=== PATIENT | female | born 1960 | race African-American/Black ===

== ENCOUNTER → 2017-02-04 | Outpatient (CLI) | payer OTHER ==
--- NOTE | 2017-02-04 16:29 | CT ---
EXAMINATION TYPE: CT brain wo con DATE OF EXAM: 02/04/2017 COMPARISON: NONE HISTORY: Patient complains of migraine headaches and eye pressure x4 years. CT DLP: [address] of the head is obtained. The ventricles, basal cisterns and sulci overlying the conve xities are consistent with the patient's age. The calvarium is intact. No midline shift. IMPRESSION: 1. No evidence of acute hemorrhage or mass effect. If symptoms persist or there is continued clinica l concern for acute ischemia correlate with MRI.
== END | disposition home or self-care (01) ==
LOC: RADCTMAIN 15:33
PROVIDERS: ATTEND Psychiatry & Neurology Neurology
DX: R51 Headache (principal)
CPT/HCPCS: 70450

== ENCOUNTER 2017-09-02 11:12 | Day surgery (SDC) | payer OTHER ==
[2017-09-01 13:33] VITALS: BMI 33.2
[~2017-09-02 11:12] MED LIST: LACTATED RINGERS 1,000 ML IV SCH
[2017-09-02 12:06] VITALS: TEMP 98
[2017-09-02] MEDS ORDERED: LIDOCAINE 1% 20 ML VIAL (10MG/ML) FOR IV START INTRADERMA ONE (12:14)
[2017-09-02] MEDS ORDERED: PROPOFOL 10 MG/ML 20 ML VIAL IV ONE (13:32)
[2017-09-02] MEDS ORDERED: LIDOCAINE 1% INJ 10MG/ML (20 ML MDV) ONE (13:32)
[2017-09-02 14:02] VITALS: PULSE 80
--- NOTE | 2017-09-02 14:02 | P.PCN ---
Date of Procedure: 09/02/17 Procedure(s) Performed: Brief history: Patient is a pleasant 56-year-old -[place] female,scheduled for an elective upper endoscopy as well as colonoscopy as a part of evaluation of ntermittent dysphagia to solids, abdominal pain and change in bowel habits. Procedure performed: Esophagogastroduodenoscopy with biopsy Colonoscopy Preoperative diagnosis: intermittent dysphagia to solids Change in bowel habits Anesthesia: MAC Procedure: After informed consent was obtained from the patient was brought into the endoscopy unit and IV sedation was administered by anesthesia under continuous monitoring. Initially upper endoscopy was done. The Olympus GF 160 video endoscope was inserted inserted into the mouth and esophagus intubated without any difficulty and was gradually advanced into the stomach and duodenum and carefully examined. The bulb and second part of the duodenum appeared normal. The scope was then withdrawn into the stomach adequately insufflated with air and upon careful examination the antrum had patchy areas of erythema and biopsies were done from this area. The body, cardia and fundus appeared normal. The scope was then withdrawn into the esophagus. The GE junction was located at 40 cm to the incisors. It appeared regular with no erythema erosions or ulcerations. Rest of the esophagus appeared normal. Patient tolerated the procedure well. At this time the patient continued to remain sedation. Initial digital rectal examination was normal. Olympus CF 160 video colonoscope was then inserted into the rectum and gradually advanced to the cecum without any difficulty. Careful examination was performed as the scope was gradually being withdrawn. The prep was 4.. The cecum, ascending colon, transverse colon, descending colon , sigmoid colon and rectum appeared normal. Retroflexion was performed in the rectum and no lesions were noted. Patient tolerated the procedure well. Impression: 1. Upper endoscopy revealed mild antral gastritis but no evidence of esophagitis or esophageal stricture 2. Colonoscopy revealedno evidence of colorectal neoplasia but poor prep and small internal hemorrhoids Recommendations: Findings of this examination were discussed with the patient as well chase family. She was advised to follow with the biopsy results.she can have a repeat colonoscopy in 5 years.
[2017-09-02 14:16] VITALS: BP 126/85; RESP 18
== END 2017-09-02 14:36 | disposition home or self-care (01) ==
LOC: ORWHC2ENDO 11:12
PROVIDERS: ATTEND Internal Medicine Gastroenterology
DX: K29.50 Unspecified chronic gastritis without bleeding (principal); B96.81 Helicobacter pylori [H. pylori] as the cause of diseases classified elsewhere; K20.9 Esophagitis, unspecified; R19.4 Change in bowel habit; K64.8 Other hemorrhoids; I10 Essential (primary) hypertension; F17.200 Nicotine dependence, unspecified, uncomplicated; M19.90 Unspecified osteoarthritis, unspecified site; Z79.899 Other long term (current) drug therapy
CPT/HCPCS: 88305; 88342; 45378; 43239; J2001; J2704

== ENCOUNTER → 2019-08-17 | Outpatient (CLI) | payer OTHER ==
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
--- NOTE | 2019-08-20 09:46 | MM ---
Reason for exam: screening (asymptomatic). Last mammogram was performed 5 years and 3 months ago. History: Patient is postmenopausal. Family history of breast cancer in mother at age 60. Physical Findings: A clinical breast exam by your physician is recommended on an annual basis and results should be correlated with mammographic findings. MG Screening Mammo w CAD Bilateral CC and MLO view(s) were taken. Prior study comparison: May 20, 2014, bilateral MG screening mammo w CAD. August 03, 2002, bilateral screening mammogram. The breast tissue is heterogeneously dense. This may lower the sensitivity of mammography. Benign appearing bilateral calcifications. No suspicious abnormality. Intramammary lymph nodes noted bilaterally. No significant changes when compared with prior studies. ASSESSMENT: Benign, BI-RAD 2 RECOMMENDATION: Routine screening mammogram of both breasts in 1 year.
== END | disposition home or self-care (01) ==
LOC: RADMAMWWP 11:02
PROVIDERS: ATTEND Family Medicine
DX: Z12.31 Encounter for screening mammogram for malignant neoplasm of breast (principal); M99.71 Connective tissue and disc stenosis of intervertebral foramina of cervical region; M47.812 Spondylosis without myelopathy or radiculopathy, cervical region; M46.96 Unspecified inflammatory spondylopathy, lumbar region; M46.02 Spinal enthesopathy, cervical region; M46.07 Spinal enthesopathy, lumbosacral region
CPT/HCPCS: 72050; 72110; 77067

== ENCOUNTER → 2020-11-28 | Outpatient (CLI) | payer OTHER ==
--- NOTE | 2020-12-01 10:23 | MM ---
Reason for exam: screening (asymptomatic). Last mammogram was performed 1 year and 3 months ago. History: Patient is postmenopausal. Family history of breast cancer in mother at age 60. Physical Findings: A clinical breast exam by your physician is recommended on an annual basis and results should be correlated with mammographic findings. MG Screening Mammo w CAD Bilateral CC and MLO view(s) were taken. Prior study comparison: August 17, 2019, bilateral MG screening mammo w CAD. May 20, 2014, bilateral MG screening mammo w CAD. The breast tissue is heterogeneously dense. This may lower the sensitivity of mammography. Benign appearing bilateral calcifications. There is chronic nodularity in the left breast. No significant changes when compared with prior studies. ASSESSMENT: Benign, BI-RAD 2 RECOMMENDATION: Routine screening mammogram of both breasts in 1 year.
== END | disposition home or self-care (01) ==
LOC: RADMAMWWP 12:23
PROVIDERS: ATTEND Family Medicine
DX: Z12.31 Encounter for screening mammogram for malignant neoplasm of breast (principal); Z78.0 Asymptomatic menopausal state; Z80.3 Family history of malignant neoplasm of breast
CPT/HCPCS: 77067

== ENCOUNTER 2021-09-24 09:29 | Emergency (ER) | payer OTHER ==
[2021-09-24 09:36] VITALS: BP 118/75; PULSE 83; RESP 18; TEMP 98.2
--- NOTE | 2021-09-24 10:32 | XR ---
EXAMINATION TYPE: XR clavicle LT DATE OF EXAM: 09/24/2021 COMPARISON: Left shoulder same date HISTORY: Pain fall TECHNIQUE: 2 view left clavicle FINDINGS: No acute fractures or dislocations are evident. Minimal degenerative changes at the acromio clavicular junction. Sternoclavicular junction as visualized appears intact. Follow up exams would be recommended 710 days from acute trauma for continued pain. IMPRESSION: 1. No acute osseous abnormality radiographically apparent.
--- NOTE | 2021-09-24 10:33 | XR ---
EXAMINATION TYPE: XR shoulder complete LT DATE OF EXAM: 09/24/2021 COMPARISON: NONE HISTORY: Pain TECHNIQUE: Shoulder examined in 3 rejections FINDINGS: The humeral head articulates with the glenoid. The acromio-clavicular junction is normal. There may be some downward sloping of the acromion. No acute fractures or dislocations are evident. A follow up study can be performed 7-10 days from acute trauma for continued pain. IMPRESSION: 1. No acute osseous abnormality left shoulder.
--- NOTE | 2021-09-24 10:53 | ED ---
Upper Extremity HPI - General Chief Complaint: Extremity Injury, Upper Stated Complaint: Fall, Shoulder pain Time Seen by Provider: 09/24/21 09:39 Source: patient, RN notes reviewed Mode of arrival: ambulatory Limitations: no limitations - History of Present Illness Initial Comments: This a 60-year-old female presents emergency Department chief complaint left shoulder pain. Patient states she slipped on some ice last night left shoulder. Patient states she has pain increased with movement. She states she has decreased range of motion left shoulder. Denies any head injury no loss conscious no back or hip pain. Patient states that she is left-hand dominant. Patient does not complaints. - Related Data Home Medications Medication Instructions Recorded Confirmed Metoprolol Succinate [Toprol XL] 25 mg PO DAILY 09/24/21 09/24/21 Allergies Allergy/AdvReac Type Severity Reaction Status Date / Time No Known Allergies Allergy Verified 09/24/21 10:14 Review of Systems ROS Statement: Those systems with pertinent positive or pertinent negative responses have been documented in the HPI. ROS Other: All systems not noted in ROS Statement are negative. Past Medical History Past Medical History: Hypertension, Osteoarthritis (OA) Additional Past Medical History / Comment(s): constipation, hx of migraines, neuropathy, History of Any Multi-Drug Resistant Organisms: None Reported Past Surgical History: Section Additional Past Surgical History / Comment(s): cyst removed from throat Past Anesthesia/Blood Transfusion Reactions: No Reported Reaction Past Psychological History: No Psychological Hx Reported Smoking Status: Current every day smoker Past Alcohol Use History: Occasional Past Drug Use History: None Reported - Past Family History Mother Family Medical History: Cancer Additional Family Medical History / Comment(s): breast General Exam Limitations: no limitations General appearance: alert, in no apparent distress Head exam: Present: atraumatic, normocephalic, normal inspection Eye exam: Present: normal appearance, PERRL, EOMI. Absent: scleral icterus, conjunctival injection, periorbital swelling ENT exam: Present: normal exam, normal oropharynx, mucous membranes moist Neck exam: Present: normal inspection, full ROM. Absent: tenderness, meningismus, lymphadenopathy Respiratory exam: Present: normal lung sounds bilaterally. Absent: respiratory distress, wheezes, rales, rhonchi, stridor Cardiovascular Exam: Present: regular rate, normal rhythm, normal heart sounds. Absent: systolic murmur, diastolic murmur, rubs, gallop, clicks GI/Abdominal exam: Present: soft, normal bowel sounds. Absent: distended, tenderness, guarding, rebound, rigid Extremities exam: Present: other (Left shoulder there is tenderness over the clavicle, anterior and lateral portion of the shoulder limited range of motion neurovascular intact no forearm tenderness.) Back exam: Present: full ROM. Absent: tenderness Course Vital Signs 09/24/21 09:34 Temperature 98.2 F Pulse Rate 83 Respiratory 18 Rate Blood Pressure 118/75 O2 Sat by Pulse 98 Oximetry Medical Decision Making - Medical Decision Making X-rays negative for acute abnormality. Patient has left shoulder strain concerning for rotator cuff injury. Patient will be placed a sling and follow- up with orthopedics. She will follow-up with orthopedics Disposition Clinical Impression: Left shoulder strain Disposition: HOME SELF-CARE Condition: Stable Instructions (If sedation given, give patient instructions): Rotator Cuff Injury (ED) Additional Instructions: Please return to the Emergency Department if symptoms worsen or any other concerns. Is patient prescribed a controlled substance at d/c from ED?: No Referrals: Alma Mclaughlin MD [Primary Care Provider] - 1-2 days Maksim Florence DO [Doctor of Osteopathic Medicine] - 1-2 days Time of Disposition: 10:54
== END 2021-09-24 11:11 | disposition home or self-care (01) ==
LOC: EC 09:29
DX: S46.912A Strain of unspecified muscle, fascia and tendon at shoulder and upper arm level, left arm, initial encounter (principal); I10 Essential (primary) hypertension; F17.200 Nicotine dependence, unspecified, uncomplicated; Z79.899 Other long term (current) drug therapy; W01.0XXA Fall on same level from slipping, tripping and stumbling without subsequent striking against object, initial encounter
CPT/HCPCS: 99284

== ENCOUNTER → 2023-04-28 | Outpatient (CLI) | payer MEDICARE, OTHER ==
--- NOTE | 2023-04-28 11:05 | CT ---
EXAMINATION TYPE: CT abdomen w con DATE OF EXAM: 04/28/2023 COMPARISON: 07/09/2014 HISTORY: abd pain CT DLP: 432.9 mGycm CONTRAST: CT scan of the abdomen is performed with Oral Contrast and with IV Contrast, patient injected with 10 0 mL of Isovue 300. FINDINGS: LUNG BASES-: No visible nodule. No infiltrate. LIVER/GB: The gallbladder is surgically absent. No space occupying hepatic lesion. Biliary tree is of normal caliber. PANCREAS: No inflammation. No distinct mass. SPLEEN: No splenic enlargement. No lesion seen. ADRENALS: No nodule. No thickening. KIDNEYS/BLADDER: No hydronephrosis. No nephrolithiasis. No distinct renal mass. Urinary bladder g rossly unremarkable. BOWEL: Normal appendix. Normal bowel caliber. No inflammation. LYMPH NODES: No greater than 1cm abdominal or pelvic lymph nodes are appreciated. AORTA: No significant abnormality. OSSEOUS STRUCTURES: No significant abnormality is seen. OTHER: No significant additional abnormality is seen. IMPRESSION: 1. No significant abnormality appreciated.
== END | disposition home or self-care (01) ==
LOC: RADCTMAIN 08:56
PROVIDERS: ATTEND Family Medicine
DX: R10.84 Generalized abdominal pain (principal)
CPT/HCPCS: 74160; Q9967

== ENCOUNTER → 2023-05-27 | Outpatient (CLI) | payer MEDICARE ==
--- NOTE | 2023-05-27 20:19 | CTL ---
EXAMINATION TYPE: CT Low Dose Lung DATE OF EXAM ORDERED: 05/27/2023 HISTORY: 62-year-old female current smoker with 20 pack-year history. Lung cancer screening CT DLP: 80.[address] CTDI: 2.3 mGy Automated exposure control for dose reduction was used. SCREENING VISIT: Baseline COMPARISON: None TECHNIQUE: Low dose computed tomography scan was performed through the chest with coronal and sagitta l reconstructions. CT DIAGNOSTIC QUALITY: Satisfactory FINDINGS: Heart normal size without pericardial effusion. Aorta normal caliber with conventional vessel branching anatomy. No thoracic adenopathy by CT size criteria. Some strandy atelectasis in the lower lungs. Moderate diffuse bronchial wall thickening. Minimal emph ysematous change. No consolidation or pleural effusion. 5 mm lateral right upper lobe pulmonary nodule, axial image 95. 4 mm posterior right mid lung pulmonary nodule, axial image 24. 5 mm posteromedial right mid lung pulmonary nodule, axial image 136. Cholecystectomy clips. Visualized upper abdomen otherwise shows no gross adenopathy. Bones: Anterior endplate spondylosis mid to lower thoracic spine. No osseous destructive process. IMPRESSION: 1. LungRADS 2, benign. A few 5 mm and smaller pulmonary nodules on baseline screening. 2. Minimal emphysematous change. Bronchial wall thickening suggests bronchitis or chronic asthma. Rec ommend smoking cessation. CT LUNG RAD AND CT CHEST RECOMMENDATION: Lung-Rad 2 Benign Appearance or Behavior: Continue annual sc reening with LDCT in 12 months. S Modifier (other clinically significant findings): None
== END | disposition home or self-care (01) ==
LOC: RADCTMAIN 14:32
PROVIDERS: ATTEND Family Medicine
DX: Z12.2 Encounter for screening for malignant neoplasm of respiratory organs (principal); J43.9 Emphysema, unspecified; R10.84 Generalized abdominal pain; R91.8 Other nonspecific abnormal finding of lung field; F17.210 Nicotine dependence, cigarettes, uncomplicated
CPT/HCPCS: 71271

== ENCOUNTER → 2023-06-27 | Day surgery (SDC) | payer MEDICARE ==
[2023-06-27 10:50] VITALS: BP 109/73; PULSE 67; RESP 18; TEMP 96.9
--- NOTE | 2023-06-29 09:05 | OP ---
OPERATIVE REPORT DATE OF SERVICE : 06/29/2023 REQUESTING PHYSICIAN: Dr. Dileep Mcgill. HISTORY: The patient is a 62-year-old pleasant white female, scheduled for an esophageal manometry as a part of evaluation of intermittent dysphagia to solids. The patient did have an upper endoscopy done 3 months ago that revealed normal-appearing esophagus and biopsies were negative. Because of persistent intermittent dysphagia, she is scheduled for an esophageal manometry to evaluate for esophageal dysmotility. PROCEDURE PERFORMED: Esophageal manometry, high-resolution impedance esophageal manometry. PREOPERATIVE DIAGNOSIS: Intermittent dysphagia to solids. ANESTHESIA: None. DESCRIPTION OF PROCEDURE: After informed consent was obtained from the patient, she was brought into the endoscopy unit. The esophageal manometry catheter was performed by Endoscopy nurse, Narda. The esophageal manometry catheter was passed from the external nostril and was gently advanced into the stomach, and the study was performed using liquid and viscous swallows. The study was interpreted using [place] classification. The following were the study results: 1. Lower esophageal sphincter data: a. Mean IRP 40 mmHg. b. Mean residual pressure 17 mmHg. c. EGD morphology type 3. 2. Lower esophageal body: Mean DCI 6387 mmHg.s.cm. 3. Peristaltic contractions today 45%, ineffective contractions 0, simultaneous contractions 36%. 4. Impedance study: Complete liquid transit 72%. Complete viscous transit 54%. INTERPRETATION: The esophageal manometry study shows increased lower esophageal sphincter pressures with increased integral residual pressures, but there was evidence of esophageal peristalsis, involving the esophageal body. However, there are a few simultaneous contractions noted. The study basically reveals evidence of some esophageal dysmotility, but no evidence of esophageal achalasia. There was an element of hypertensive lower esophageal sphincter. MMODL / IJN: [id number] /
== END ==
LOC: ORWHC2ENDO 10:10
PROVIDERS: ATTEND Internal Medicine Gastroenterology
DX: K22.0 Achalasia of cardia (principal)
CPT/HCPCS: 91010

== ENCOUNTER → 2023-12-01 | Outpatient (CLI) | payer MEDICARE ==
--- NOTE | 2023-12-02 09:35 | US ---
EXAMINATION TYPE: US arterial LE single level DATE OF EXAM: 12/01/2023 1:43 PM CLINICAL INDICATION: Female, 62 years old with history of E78.2 HYTPERLIPIDEMIA R20.2; Pain bilateral legs for years, getting worse and worse on the left side. Edema bilateral feet History of: Smoker: yes Hypertension: yes Diabetic: no Hyperlipidemia: yes TIA/CVA: no Previous Vascular Surgery: no DC: no Vascular Ulcers: no Claudication: no Gangrene: no Doppler Waveforms: Right: Triphasic Left: Triphasic Right Brachial Pressure: 115 Left Brachial Pressure: 112 Ankle-Brachial Indices: Right: 1.21 Left: 1.17 (Vessel hardening > 1.4; Normal 0.9 - 1.4, Moderate 0.7 - 0.9, Severe 0.5-0.7) IMPRESSION: There is no evidence of lower extremity peripheral arterial disease based on waveforms an d ankle brachial indices.
== END | disposition home or self-care (01) ==
LOC: RADMAMWWP 13:12
PROVIDERS: ATTEND Family Medicine
DX: Z12.31 Encounter for screening mammogram for malignant neoplasm of breast (principal); E78.2 Mixed hyperlipidemia; R20.2 Paresthesia of skin; R25.2 Cramp and spasm
CPT/HCPCS: 77067; 93922

== ENCOUNTER → 2024-07-13 | Outpatient (CLI) | payer MEDICARE ==
--- NOTE | 2024-07-13 15:09 | CTL ---
EXAMINATION TYPE: CT Low Dose Lung DATE OF EXAM ORDERED: 07/13/2024 COMPARISON: 05/27/2023 CLINICAL INDICATION: Female, 63 years old with history of Z12.2 ENCNTR SCREEN FOR MALIGNANT NEOPLASM OF RESP; PHH, Personal hx nicotine dependence, pt quit 3 months ago, was 1/2 ppd x 40 years., Lung ca ncer screening, History of Smoking/tobacco use. TECHNIQUE: Low dose computed tomography scan was performed through the chest at 1 mm thick sections a nd reconstructed images in multiple planes at 1 mm and [address] DLP: 96.[address] CTDI: 3.0 mGy Automated exposure control for dose reduction was used. CT DIAGNOSTIC QUALITY: Satisfactory FINDINGS: There are 3 stable sub-6 mm nodules in the right lung. No new or suspicious lung mass or nodule seen there is no airspace consolidation. There is mild interstitial scarring in the lingula. There is no pleural effusion or pneumothorax. The great vessels chest are normal and there is no mediastinal, hilar or axillary adenopathy. No focal osseous lesions are seen. Limited scanning) reveals no gross abnormality. IMPRESSION: 1. Lung RADS category 2. Benign findings. Continue routine screening at yearly intervals. 2. No acute cardiopulmonary disease. [facility], , 07/13/2024 3:07 PM
== END | disposition home or self-care (01) ==
LOC: RADCTMAIN 14:34
PROVIDERS: ATTEND Family Medicine
DX: Z12.2 Encounter for screening for malignant neoplasm of respiratory organs (principal); Z87.891 Personal history of nicotine dependence
CPT/HCPCS: 71271